=== PATIENT | male | born 1995 | race Caucasian/White ===

== ENCOUNTER 2021-11-15 18:18 | Emergency (ER) | payer SELFPAY ==
[2021-11-15 18:43] VITALS: BP 132/90; PULSE 68; TEMP 98; BMI 32.3
== END 2021-11-15 22:00 | disposition home or self-care (01) ==
LOC: JER 18:18 → JERFT 18:18
DX: S92.501A Displaced unspecified fracture of right lesser toe(s), initial encounter for closed fracture (principal); W20.8XXA Other cause of strike by thrown, projected or falling object, initial encounter
CPT/HCPCS: 73660-TC-FY; 99283-25

== ENCOUNTER 2022-06-28 05:19 | Emergency (ER) | payer OTHER ==
[2022-06-28 05:36] VITALS: RESP 20; BMI 35.4
[2022-06-28] MEDS ORDERED: SODIUM CHLORIDE 0.9% 500 ML INFUS.BAG IV ONE (05:59)
[2022-06-28 06:53] LABS: HEMATOCRIT 44.2 % (35.4-49); HEMOGLOBIN 15.1 GM/dL (11.7-16.9); MCH 28.8 pg (25.7-33.7); MEAN CELL VOLUME 84.6 fl (80-96); MEAN PLT VOLUME 8.8 fl (7.5-11.1); PLATELET COUNT 345 10^3/uL (134-434); RBC 5.23 M/mm3 (4.00-5.60); RDW 13.4 % (11.9-15.9)
[2022-06-28 06:57] LABS: CALCIUM 8.9 mg/dL (8.5-10.1)
[2022-06-28 06:58] LABS: BLOOD UREA NITROGEN 10.8 mg/dL (7-18)
[2022-06-28 07:03] LABS: BILIRUBIN,TOTAL 0.3 mg/dL (0.2-1); TOT PROT 8.2 g/dl (6.4-8.2)
[2022-06-28 07:46] LABS: ANISOCYTOSIS 2+; MACROCYTOSIS 0; TEAR DROP CELLS 1+
[2022-06-28 10:16] VITALS: BP 118/69; TEMP 98
[2022-06-28 11:42] VITALS: PULSE 104
== END 2022-06-28 11:45 | disposition home or self-care (01) ==
LOC: JER 05:19
DX: F10.929 Alcohol use, unspecified with intoxication, unspecified (principal); V49.9XXA Car occupant (driver) (passenger) injured in unspecified traffic accident, initial encounter
CPT/HCPCS: 36415; 80053; 80307; 85025; 99284-25

== ENCOUNTER 2022-09-30 18:15 | Emergency (ER) | payer SELFPAY ==
[2022-09-30 18:35] VITALS: BMI 35.4
[2022-09-30] MEDS ORDERED: ACETAMINOPHEN 500 MG TABLET (FP) PO ONE (19:50)
[2022-09-30] MEDS ORDERED: ACETAMINOPHEN 500 MG TABLET (FP) ONE (20:15)
[2022-09-30 20:45] LABS: BASO % 0.3 % (0-2.0); EOS % 0.9 % (0-4.5); HEMATOCRIT 44.8 % (35.4-49); HEMOGLOBIN 15.1 GM/dL (11.7-16.9); LYMPH % 19.2 % (8-40); MCH 28.1 pg (25.7-33.7); MCHC 33.7 g/dl (32.0-35.9); MEAN CELL VOLUME 83.3 fl (80-96); MEAN PLT VOLUME 8.4 fl (7.5-11.1); MONO % 7.5 % (3.8-10.2); NEUT % 72.1 % (42.8-82.8); PLATELET COUNT 250 10^3/uL (134-434); RBC 5.37 M/mm3 (4.00-5.60); RDW 13.4 % (11.9-15.9); WHITE BLOOD COUNT 8.2 K/mm3 (4.0-10.0)
[2022-09-30 21:03] LABS: CHLORIDE 108 mmol/L (98-107); SODIUM 136 mmol/L (136-145)
[2022-09-30 21:06] LABS: ALBUMIN 4.1 g/dl (3.4-5.0); ANION GAP 1 MMOL/L (8-16); BLOOD UREA NITROGEN 20.3 mg/dL (7-18); CALCIUM 9.1 mg/dL (8.5-10.1); CO2 27 mmol/L (21-32); GLUCOSE,RANDOM 95 mg/dL (74-106)
[2022-09-30 21:08] LABS: SGPT/ALT 140 U/L (13-61)
[2022-09-30 21:09] LABS: CREATININE 0.8 mg/dL (0.55-1.3); SGOT/AST 80 U/L (15-37)
[2022-09-30 21:11] LABS: ALK PHOS 66 U/L (45-117)
[2022-09-30 22:18] VITALS: BP 122/72; PULSE 77; RESP 19; TEMP 98.6
== END 2022-09-30 22:18 | disposition home or self-care (01) ==
LOC: JER 18:15
DX: R74.01 Elevation of levels of liver transaminase levels (principal); R07.89 Other chest pain
CPT/HCPCS: 36415; 71046-TC-FY; 80053; 84484; 85025; 93005; 93010; 99285-25

== ENCOUNTER 2022-10-12 21:24 | Emergency (ER) | payer SELFPAY ==
[2022-10-12 21:48] VITALS: BP 131/78; PULSE 73; RESP 18; TEMP 98.3; BMI 35.4
[2022-10-12] MEDS ORDERED: FLUORESCEIN NA 1 EA STRIP OS ONE (21:57)
[2022-10-12] MEDS ORDERED: ERYTHROMYCIN 0.5% OPHTHALMIC OINTMENT 3.5 GM TUBE OS STA (21:57)
[2022-10-12] MEDS ORDERED: DIPHTH,PERTUSS(ACELL),TET 0.5 ML DISP.SYRIN IM ONE ×2 (21:57→21:59)
[2022-10-12] MEDS ORDERED: TETRACAINE 0.5% OPHTH SOLN 2 ML BOTTLE OS ONE (21:57)
[2022-10-12] MEDS ORDERED: ERYTHROMYCIN 0.5% OPHTHALMIC OINTMENT 3.5 GM TUBE ONE (21:59)
== END 2022-10-12 22:09 | disposition home or self-care (01) ==
LOC: JER 21:24 → JERFT 21:24
PROC: 3E0234Z Introduction of Serum, Toxoid and Vaccine into Muscle, Percutaneous Approach (ICD-10-PCS; principal; 2022-10-12)
DX: T15.02XA Foreign body in cornea, left eye, initial encounter (principal)
CPT/HCPCS: 90715; 99283-25

== ENCOUNTER 2023-12-15 07:25 | Emergency (ER) | payer SELFPAY ==
[2023-12-15 07:37] VITALS: BP 132/93; PULSE 80; RESP 20; TEMP 98.8; BMI 39.0
[2023-12-15] MEDS ORDERED: ACETAMINOPHEN INJECTION 100 ML IVPB ONE (08:18)
[2023-12-15] MEDS: ACETAMINOPHEN 1000 MG/100 ML BAG IVPB ONE (08:45)
[2023-12-15] MEDS: SODIUM CHLORIDE 0.9% 500 ML INFUS.BAG IV ONE (08:45)
[2023-12-15 09:01] LABS: BASO % 0.3 % (0-2.0); EOS % 0.9 % (0-4.5); HEMATOCRIT 43.7 % (35.4-49); HEMOGLOBIN 14.8 GM/dL (11.7-16.9); LYMPH % 23.6 % (8-40); MCH 28.1 pg (25.7-33.7); MCHC 33.9 g/dl (32.0-35.9); MEAN CELL VOLUME 83.1 fl (80-96); MEAN PLT VOLUME 8.5 fl (7.5-11.1); NEUT % 68.2 % (42.8-82.8); PLATELET COUNT 257 10^3/uL (134-434); RBC 5.26 M/mm3 (4.00-5.60); RDW 13.3 % (11.9-15.9)
[2023-12-15 09:06] LABS: EPI CELLS 4 /uL (0-25.1); HYALINE CASTS 0 /uL (0-3.1); PH,URINE 5.5 (5.0-8.0); URINE APPEARANCE CLEAR; URINE BACTERIA 4 /uL (0-1359); URINE BILIRUBIN NEGATIVE (NEGATIVE); URINE COLOR YELLOW; URINE GLUCOSE (UA) NEGATIVE (NEGATIVE); URINE KETONE NEGATIVE (NEGATIVE); URINE LEUK ESTERASE NEGATIVE (NEGATIVE); URINE NITRITE NEGATIVE (NEGATIVE); URINE PROTEIN 1+ (NEGATIVE); URINE RBC 9 /uL (0-23.9); URINE UROBILINOGEN 0.2 mg/dL (0.2-1.0); URINE WBC 6 /uL (0-25.8)
[2023-12-15 09:15] LABS: CALCIUM 9.1 mg/dL (8.5-10.1)
[2023-12-15 09:16] LABS: ALBUMIN 3.7 g/dl (3.4-5.0); BLOOD UREA NITROGEN 11.5 mg/dL (7-18); MAGNESIUM 2.2 mg/dL (1.8-2.4)
[2023-12-15 09:18] LABS: PHOSPHOROUS 3.6 mg/dL (2.5-4.9)
[2023-12-15 09:19] LABS: CREATININE 0.9 mg/dL (0.55-1.3)
[2023-12-15 09:20] LABS: BILIRUBIN,TOTAL 0.5 mg/dL (0.2-1); TOT PROT 7.6 g/dl (6.4-8.2)
== END 2023-12-15 12:09 | disposition home or self-care (01) ==
LOC: JER 07:25
PROC: 3E033NZ Introduction of Analgesics, Hypnotics, Sedatives into Peripheral Vein, Percutaneous Approach (ICD-10-PCS; principal; 2023-12-15)
DX: R10.13 Epigastric pain (principal); R19.7 Diarrhea, unspecified; Z20.822 Contact with and (suspected) exposure to COVID-19
CPT/HCPCS: 0241U-QW; 36415; 76705-TC; 80053; 81003; 83690; 83735; 84100; 85025; 87086; 99284-25; J0131